=== PATIENT | male | born 1960 | race Caucasian/White ===

== ENCOUNTER 2016-06-18 10:47 | Outpatient (CLI) | payer MEDICARE, OTHER ==
[2016-05-13 21:18] VITALS: BP 142/68
== END 2016-06-18 10:50 ==
LOC: LAB 10:47
PROVIDERS: ATTEND Family Medicine
DX: M13.0 Polyarthritis, unspecified (principal)
CPT/HCPCS: 36415; 85651; 86038; 86431

== ENCOUNTER 2016-10-22 20:52 | Emergency (ER) | payer MEDICARE, OTHER ==
--- NOTE | 2016-10-22 21:47 | Diagnostic Imaging Report ---
KELLI WRIGHT~ [facility] [address] [facility].[address] [address] ~ ~ ~ ~ Report Submission Date: Oct 22, 2016 9:31:38 PM CDT Patient ~ Study Name: JESSY HERNANDEZ ~ Date: Oct 22, 2016 9:16:25 PM CDT ~ Modality Type: CR Gender: M ~ Description: ABDOMEN : 60 ~ Institution: [facility] Physician: KELLI WRIGHT ~ ~ ~ ~ Abdomen AP view. History: Abdominal pain. Findings: The bowel gas pattern is normal. No evidence of obstruction. Mild amount of retained stool is present. No radiopaque calculus identified. There is surgical changes in the lower lumbar spine present. Impression: 1. Normal bowel gas pattern without evidence of obstruction. ~ Electronically signed on Oct 22, 2016 9:31:38 PM CDT by: Carl URBINA
[2016-10-22] MEDS: KETOROLAC TROMETHAMINE 30 MG/1ML VIAL IVP ONE (22:00)
[2016-10-22 22:01] LABS: BASOPHILS % 0.8 (0.0-1.5); EOSINOPHILS % 4.9 % (0.0-6.8); MEAN CORPUSCULAR HEMOGLOBIN 29.1 pg (28.0-34.0); MEAN CORPUSCULAR VOLUME 88.7 fl (80.0-100.0); MONOCYTES % 7.2 % (0.0-11.0); NEUTROPHILS # 2.5 # k/uL (1.4-7.7)
[2016-10-22 22:16] LABS: eGFR (African) > 60; eGFR (Non-African) > 60
[2016-10-22] MEDS: 0.9 % SODIUM CHLORIDE 500 ML IV ONE (22:21)
[2016-10-22] MEDS: HYDROmorphone HCL/PF 1 MG/ML DISP.SYRIN IVP ONE (23:21)
--- NOTE | 2016-10-23 00:28 | ED Physician Documentation ---
General Adult - HISTORIAN Historian: patient - HPI Stated Complaint: abd pain Chief Complaint: General Adult Onset: hours Timing: still present Severity: moderate Further Comments: yes (Pt is a 56 yo male with pain in his abdomen. Pt has hx chronic back pain, for which he is rx'd morphine. Pt had back surgery, he says , with numerous complications because his ureter was cut and his bowel was cut during the back surgery procedure. This resulted in a number of follow up surgeries to repair bowel and ureter. Pt has pain in the umbilical area, where he has post surgical scars. Last bowel surgery took place more than 5 yrs ago. Pt reports normal bms and no n/v.) - ROS CONST: no problems EYES/ENT: none CVS/RESP: none GI/: abdominal pain MS/SKIN/LYMPH: none - PAST HX Past History: other (GERD, chronic back pain) Surgeries/Procedures: other (ortho surgery, back surgery, multiple abdominal bowel surgeries, ureter repair s/p back surgery.) Allergies/Adverse Reactions: Allergies Allergy/AdvReac Type Severity Reaction Status Date / Time codeine AdvReac Unknown Nausea/Vomi Verified 05/13/16 20:11 ting Home Medications: Ambulatory Orders Medication Instructions Recorded Morphine Sulfate [Morphine Sulfate 30 mg PRN PRN 05/31/14 ER] Lactulose [Lactulose] 15 ml PO BID 05/13/16 Linaclotide [Linzess] 145 mcg PO DAILY 05/13/16 Tamsulosin HCl [Tamsulosin HCl] 0.4 mg PO DAILY 05/13/16 Potassium Citrate/Citric Acid 1,080 mg PO D 10/22/16 [Cytra-K Crystals Packet] - SOCIAL HX Smoking History: non-smoker - FAMILY HX Family History: No - VITAL SIGNS Vital Signs: Vital Signs Temp Pulse Resp BP Pulse Ox 97.9 F 74 16 117/74 97 10/22/16 20:52 10/22/16 20:52 10/22/16 20:52 10/22/16 20:52 10/22/16 20:52 - REVIEWED ASSESSMENTS Nursing Assessment Reviewed: Yes Vitals Reviewed: Yes Progress - Progress Progress: KUB: Normal bowel gas pattern without evidence of obstruction. NS 500 cc IVF Toradol 30 mg IV no change Dilaudid 1 mg IV some improvement in pain. ED Results Lab/Radiology - Lab Results Lab Results: Lab Results 10/22/16 21:56 WBC 5.40 K/ul K/ul (4.00-12.00) RBC 3.96 M/ul M/ul (3.90-5.20) Hgb 11.5 g/dL L g/dL (12.0-18.0) Hct 35.1 % L % (37.0-53.0) MCV 88.7 fl fl (80.0-100.0) MCH 29.1 pg pg (28.0-34.0) MCHC 32.8 g/dL g/dL (30.0-36.0) RDW 12.5 % % (11.3-14.3) Plt Count 215 K/mm3 K/mm3 (130-400) Neut % (Auto) 46.1 % % (39.0-79.0) Lymph % (Auto) 39.3 % % (16.0-50.0) Sharp % (Auto) 7.2 % % (0.0-11.0) Eos % (Auto) 4.9 % % (0.0-6.8) Baso % (Auto) 0.8 (0.0-1.5) Neut # 2.5 # k/uL # k/uL (1.4-7.7) Lymph # 2.1 # k/uL # k/uL (0.6-4.0) Sharp # 0.4 # k/uL # k/uL (0.0-0.9) Eos # 0.3 # k/uL # k/uL (0.0-0.6) Baso # 0.0 # k/uL # k/uL (0.0-0.5) Reactive Lymphs % 1.7 % % (0.0-5.0) Reactive Lymphs # 0.1 # k/uL # k/uL (0.0-0.8) - Orders Orders: ED Orders Category Date Time Status Place IV Lock 1T Care 10/22/16 21:05 Active KUB [ABDOMEN 1 VIEW] [RAD] Stat Exams 10/22/16 Completed AMYLASE Routine Lab 10/22/16 21:56 Received CBC/PLATELET/DIFF Routine Lab 10/22/16 21:56 Completed CMP Routine Lab 10/22/16 21:56 Received 0.9 % Sodium Chloride [Normal Saline] 500 ml Med 10/22/16 21:05 Discontinued IV NOW Ketorolac Tromethamine [Toradol] Med 10/22/16 21:32 Discontinued 30 mg IVP NOW ONE General Adult Physical Exam - PHYSICAL EXAM GENERAL APPEARANCE: mild distress EENT: pharynx normal NECK: normal inspection, supple RESPIRATORY: no resp distress, chest non-tender, breath sounds normal CVS: reg rate & rhythm, heart sounds normal ABDOMEN: soft, no organomegaly, normal bowel sounds, other (pain appears superficial, as in the abd muscles near the umbilicus.) BACK: normal inspection, no CVA tenderness SKIN: warm/dry, normal color EXTREMITIES: non-tender, normal range of motion, no evidence of injury NEURO: oriented X3, motor nml, sensation nml Discharge Clincal Impression: abd pain, ? abd wall, muscular Referrals: Primary Doctor,No [Primary Care Provider] - Home Medications: Ambulatory Orders Morphine Sulfate [Morphine Sulfate ER] 30 mg PRN PRN 05/31/14 Lactulose [Lactulose] 15 ml PO BID 05/13/16 Linaclotide [Linzess] 145 mcg PO DAILY 05/13/16 Tamsulosin HCl [Tamsulosin HCl] 0.4 mg PO DAILY 05/13/16 Potassium Citrate/Citric Acid [Cytra-K Crystals Packet] 1,080 mg PO D 10/22/16 Condition: Stable Disposition: 01 HOME, SELF-CARE Decision to Admit: NO Decision Time: 00:24
[2016-10-23 00:40] VITALS: BP 109/57
[2016-10-23 06:22] LABS: APPEARANCE,URINE CLOUDY (CLEAR); COLOR,URINE YELLOW (YELLOW); OCCULT BLOOD,URINE TRACE-INTACT (NEGATIVE); UROBILINOGEN URINE 0.2 Eu (0.2-1.0)
== END 2016-10-23 00:15 | disposition home or self-care (01) ==
LOC: ED 20:52
DX: R10.9 Unspecified abdominal pain (principal)
CPT/HCPCS: 74000; 80053; 81002; 82150; 85025; J1170; J1885; J7060; 96361; 96374; 99283; S1016

== ENCOUNTER 2016-11-05 10:41 | Outpatient (CLI) | payer MEDICARE, OTHER ==
--- NOTE | 2016-11-08 14:42 | CONSULTATION REPORT ---
REFERRING PHYSICIAN: Dr. Darnell Reveles CONSULTING PHYSICIAN: Quinton Cotter MD Dear Dr. Reveles: HISTORY OF PRESENT ILLNESS: Thank you for your consultation request regarding Jacob Sue. Jacob Sue is a 56-year-old white male who has a rich musculoskeletal history including cervical spine fusion with hardware, left elbow surgery, ankle surgery, numerous lumbar spine surgeries, [address] Lamas, and 1 in [place] , which is complicated apparently by a severed ureter requiring repair. He continues to have chronic issues with what appears to be bowel obstruction. He was seen by Dr. Pompa at the [facility] and is to undergo revision of his bowel surgery. However, he comes to see me as about 6 months ago, he developed a gradual onset of pain in his hands and feet. 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 There is numbness and tingling in the first 3 digits bilaterally. He also has pain and stiffness in his elbows, shoulders, groin, and the knees are spared. His ankles are tender and the bottom of his feet hurt. He has had no other associated symptoms such as rashes or nodules. PAST MEDICAL HISTORY: As above, as well as chronic headaches and gastric reflux disease. PRESENT MEDICATIONS: 1. Morphine 30 mg p.r.n. 2. Lactulose. 3. Linzess. 4. Tamsulosin. ALLERGIES: He reports an allergy to codeine. SOCIAL HISTORY: Nonsmoker and nondrinker. He is . FAMILY HISTORY: His sister has rheumatoid arthritis. REVIEW OF SYSTEMS: Positive for weakness, mainly in the hands, some loss of hearing, constipation, nocturia, muscle spasms, and hair loss. Review of systems is negative for change in his weight, any red painful eyes, dry eyes or dry mouth, and difficulty swallowing. He has had no chest pain, shortness of breath, cough or wheezing. No nausea. No vomiting. No diarrhea. No dark stools or bloody stools. No skin rashes, hives, photosensitivity, color changes of the hands or feet in the cold, and no swollen or tender lymph nodes. PHYSICAL EXAMINATION: Vital Signs: Height: 5 feet 10 inches. Weight: 169. BP: 150/97, T: 96.9, R: 20, heart rate: 97. HEENT: External ears and nose are unremarkable. SKIN AND NAILS: No lesions. LUNGS: Clear bilaterally with no crackles, wheezing, or rubs. HEART: Regular rhythm. ABDOMEN: Benign. VASCULAR EXAM: No edema or cyanosis. JOINTS: Changes of OA at the DIPs and PIPs but tenderness at MCPs #2 and #3 bilaterally, as well as the right elbow. He has a flexion deformity of the left elbow with a surgical scar. Shoulders with no effusions, good range of motion. Hips and knees are unremarkable. Ankles are tender. LABORATORY STUDIES: He had some labs done on June 18 and rheumatoid factor and SHABBIR screen were negative. IMPRESSION: 1. Polyarthritis. We will evaluate the patient for an inflammatory arthropathy. 2. Chronic neck and back pain noted. PLAN: 1. We will repeat his labs today including AVISE testing. 2. We will also obtain x-rays of his hands and feet looking for clues. 3. I am going to see him back in 4 weeks. cc: Dr. Darnell URBINA
== END 2016-11-05 13:50 ==
LOC: RHEU 10:41
PROVIDERS: ATTEND Internal Medicine
DX: M13.0 Polyarthritis, unspecified (principal)
CPT/HCPCS: 36415; G0463

== ENCOUNTER 2016-11-29 15:57 | Outpatient (CLI) | payer MEDICARE, OTHER ==
--- NOTE | 2016-11-29 17:59 | Diagnostic Imaging Report ---
[facility] [address] [facility].[address] [address] Report Submission Date: Nov 29, 2016 4:52:34 PM CDT Patient Study Name: JESSY HERNANDEZ Date: Nov 29, 2016 4:12:45 PM CDT Modality Type: CR Gender: M Description: LOWER EXTREMITY : 60 Institution: [facility] Physician: MARY BENTLEY - JUAN Examination: Plain film foot History: Foot discomfort Findings: 3 views of both the right and left foot demonstrates mild osteopenia. Early articular degenerative changes. No fracture or dislocation. No soft tissue swelling. No joint effusion. Calcaneal spurs. Impression: Degenerative changes and calcaneal spurs. No fracture. Electronically signed on Nov 29, 2016 4:52:34 PM CDT by: Alexys URBINA
--- NOTE | 2016-11-29 18:01 | Diagnostic Imaging Report ---
[facility] [address] [facility].[address] [address] Report Submission Date: Nov 29, 2016 5:31:58 PM CDT Patient Study Name: JESSY HERNANDEZ Date: Nov 29, 2016 4:05:37 PM CDT Modality Type: CR Gender: M Description: UPPER EXTREMITY : 60 Institution: [facility] Physician: MARY BENTLEY - JUAN Bilateral l hands 3 views History: Pain Findings: Early osteoarthritis is noted in multiple bilateral interphalangeal joints, right 2nd and 3rd metacarpophalangeal joints and left 2nd metacarpophalangeal joint. There is no evidence of fracture, dislocation, erosion, or soft tissue calcification. 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 Electronically signed on Nov 29, 2016 5:31:58 PM CDT by: Deven URBINA
== END 2016-11-29 16:00 ==
LOC: RAD 15:57
PROVIDERS: ATTEND Internal Medicine
DX: M13.0 Polyarthritis, unspecified (principal); G56.03 Carpal tunnel syndrome, bilateral upper limbs

== ENCOUNTER 2017-01-07 12:39 | Outpatient (CLI) | payer MEDICARE, OTHER ==
--- NOTE | 2017-01-07 18:48 | OP Clinic Progress Note ---
REASON FOR VISIT: Jacob Sue returns for follow up of idiopathic polyarthritis. He is still having significant pain in his hands, wrists, elbows, and his feet. 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 He is to undergo chemotherapy under the guidance of Dr. Nichole. Otherwise, medications and history are unchanged from my original note. REVIEW OF SYSTEMS: Review of systems is as above. No fevers or chills. PHYSICAL EXAMINATION: General: He looks well. JOINTS: Joints are tender at the MCPs and PIPs but no overt synovitis. Wrists have good range of motion. Elbows are tender. DIAGNOSTIC STUDIES: I personally reviewed the x-rays of his hands, wrists, and feet. No significant osteopenia. No marginal erosions were appreciated. No significant soft tissue swelling. He does have some MCP joint space narrowing of #2 and #3 with bony sclerosis. He has got some distal osteophytes. Looking at the wrists, no definitive erosions. He has got minimal radial carpal disease. Avise testing was negative for rheumatoid factors, CCP, and vimentin antibodies. SHABBIR, low-positive, 1:80. Extractable nuclear antigens were negative. IMPRESSION: At this time, this looks like osteoarthritis rather aggressive and inflammatory. PLAN: I explained to the patient, we may need to look again in the future and a typical presentation of rheumatoid arthritis does remain possible. In the meantime, he is to complete his treatment for his neuroendocrine tumor of the jejunum. We will add no medications. I gave him a copy of his lab tests and x-rays. Thank you very much. cc: Dr. Darnell URBINA
== END 2017-01-07 12:45 ==
LOC: RHEU 12:39
PROVIDERS: ATTEND Internal Medicine
DX: M15.9 Polyosteoarthritis, unspecified (principal)
CPT/HCPCS: 99213; G0463

== ENCOUNTER 2017-04-24 19:37 | Emergency (ER) | payer MEDICARE, OTHER ==
--- NOTE | 2017-04-24 20:03 | ED Physician Documentation ---
Chest Pain - HISTORIAN Historian: patient - HPI Chief Complaint: Chest Pain Additional Information: onset 3 d ago lt ant low thoracic sharp chest pain reproduced w/ pressure but w/ exertion he has severe crushing sub sternal cp which rad to jaw and lt arm and to back-some assoc sob Timing: gradual onset, still present, worse Duration: constant, waxing, waning Last known Well Date: 04/22/17 (this is guess from pt ) Last Known Well Time: 08:12 Last known Well Code/Unknown Code: Unknown Context: activity Severity: moderate Quality: pressure, tightness, burning, dull, sharp, stabbing. denies: indigestion Chest Pain Radiation: arms, back Chest Pain Signs/Symptoms: dyspnea. denies: nausea, vomiting, diaphoresis Worsened By: exertion Relieved By: rest - ROS CONST: no problems. denies: recent illness, fever, recent injury MS/LYMPH: none GI/: none SKIN/ENDO: none NEURO/PSYCH: none - PAST HX VT risk factors: other (carcinoid small intestine ch back pain bph abd adhesions low k mg gerd) Surgeries/Procedures: other (several back hip ankle) Allergies/Adverse Reactions: Allergies Allergy/AdvReac Type Severity Reaction Status Date / Time codeine AdvReac Unknown Nausea/Vomi Verified 05/13/16 20:11 ting Home Medications: Ambulatory Orders Medication Instructions Recorded Morphine Sulfate [Morphine Sulfate 30 mg PRN PRN 05/31/14 ER] Lactulose [Lactulose] 15 ml PO BID 05/13/16 Linaclotide [Linzess] 145 mcg PO DAILY 05/13/16 Tamsulosin HCl [Tamsulosin HCl] 0.4 mg PO DAILY 05/13/16 Potassium Citrate/Citric Acid 1,080 mg PO D 10/22/16 [Cytra-K Crystals Packet] - SOCIAL HX Smoking History: non-smoker Alcohol Use: none Drug Use: none - FAMILY HX Family HX: other (i-c-[id number]-heavy cigarette smoker) - VITAL SIGNS Vital Signs: Vital Signs Temp Pulse Resp BP Pulse Ox 109/57 10/23/16 00:35 - REVIEWED ASSESSMENTS Nursing Assessment Reviewed: Yes Vitals Reviewed: Yes ED Results Lab/Radiology - Orders Orders: ED Orders Category Date Time Status Continuous EKG monitoring Q30M Care 04/24/17 19:57 Active Continuous Pulse Oximetry Q30M Care 04/24/17 19:[address] IV Lock 1T Care 04/24/17 19:57 Active CHEST 1 VIEW [RAD] Stat Exams 04/24/17 19:57 Ordered CBC/PLATELET/DIFF Routine Lab 04/24/17 19:57 Ordered CMP Routine Lab 04/24/17 19:57 Ordered TROPONIN I (cTnI) Stat Lab 04/24/17 19:57 Ordered Aspirin Med 04/24/17 19:56 Discontinued 324 mg PO NOW ONE Nitroglycerin [Nitroquick] Med 04/24/17 19:56 Ordered 0.4 mg SL Q5M PRN Oxygen Daily Oxygen 04/24/17 20:00 Ordered EKG WITH COMPARISON Stat Ther 04/24/17 19:57 Ordered Chest Pain Physical Exam - EXAM General Appearance: moderate distress EENT: eye inspection normal Neck: nml inspection, no carotid bruit Respiratory: no resp. distress. No: chest non-tender (lt ant low thoracic sig tenderness w/pressure-but this different than above) CVS: reg. rate & rhythm, no murmur Abdomen: soft, non-tender Skin: warm/dry, normal color. No: cyanosis, diaphoresis, jaundice, mottled Extremities: non-tender, normal range of motion Neuro: oriented X3, motor nml, sensation nml, mood/affect nml Discharge Clincal Impression: exertional angina dt anemia, anemia asssoc w/carcinoid Referrals: Darnell Reveles MD [Primary Care Provider] - 2 Days Comments: muset see oncologists soon-send copies lab w/pt/ Condition: Fair Disposition: 01 HOME, SELF-CARE Decision to Admit: NO Decision Time: 23:13
[2017-04-24] MEDS ORDERED: NITROGLYCERIN 0.4 MG TAB.SUBL SL ONE (20:05)
[2017-04-24 20:06] LABS: BASOPHILS % 0.6 (0.0-1.5); EOSINOPHILS % 2.5 % (0.0-6.8); MEAN CORPUSCULAR HEMOGLOBIN 20.4 pg (28.0-34.0); MONOCYTES % 5.4 % (0.0-11.0); NEUTROPHILS # 4.5 # k/uL (1.4-7.7)
[2017-04-24] MEDS: NITROGLYCERIN 0.4 MG TAB.SUBL SL PRN (20:10)
[2017-04-24] MEDS: ASPIRIN 81 MG CHEW TAB PO ONE (20:10)
[2017-04-24 20:20] LABS: eGFR (African) > 60; eGFR (Non-African) > 60
[2017-04-24] MEDS: 0.9 % SODIUM CHLORIDE 1,000 ML IV SCH (22:46)
[2017-04-24] MEDS: ONDANSETRON HCL/PF 4 MG/ 2ML VIAL IVP ONE (23:11)
[2017-04-24 23:29] VITALS: BP 122/68
[2017-04-25 06:07] LABS: APPEARANCE,URINE CLOUDY (CLEAR); COLOR,URINE YELLOW (YELLOW); OCCULT BLOOD,URINE NEGATIVE (NEGATIVE); PH URINE 5.5 (5.0 - 8.0); UROBILINOGEN URINE 0.2 Eu (0.2-1.0)
--- NOTE | 2017-04-25 06:29 | Diagnostic Imaging Report ---
SAMIR MIKE [facility] [address] [facility].[address] 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 Lung sanz without focal infiltrate. No blunting of the costophrenic margins. Mild elevation of the right hemidiaphragm. Osseous structures are appropriate for age. Impression: No acute pulmonary process. Electronically signed on Apr 24, 2017 8:22:01 PM SEAL DELIVERY VEHICLE OFFICER by: Alexys URBINA
== END 2017-04-24 23:22 | disposition home or self-care (01) ==
LOC: ED 19:37
DX: I20.8 Other forms of angina pectoris (principal); D64.89 Other specified anemias
CPT/HCPCS: 71010; 80053; 81002; 84484; 85025; 96360; 99283; J7030; S1016

== ENCOUNTER 2018-04-12 20:04 | Emergency (ER) | payer MEDICARE, OTHER ==
--- NOTE | 2018-04-12 20:33 | ED Physician Documentation ---
Lower Extremity Problem - HISTORIAN Historian: patient - HPI Stated Complaint: L ankle pain Chief Complaint: Lower Extremity Problem Additional Information: Patient presents to ED with a 2 day history of left ankle pain extending into left lateral foot. He denies any injury, however, does say he may have stepped off of his tractor the wrong way a couple of days ago. He admits to previous surgery to the ankle. Location of Injury: L ankle Onset: days ago (2) Timing: still present, worse Duration: constant Recent Injury: No Where: home Severity: moderate Quality: pain, swelling, tenderness. denies: numbness, tingling Exacerbated By: walking Relieved By: nothing Associated Symptoms: denies: chest pain, shortness of breath Further Comments: no - ROS CONST: no problems MS/SKIN/LYMPH: none GI/: none EYES/ENT: none NERUO/PSYCH: denies: headache - PAST HX Past History: none PE Risk Factors: none Allergies/Adverse Reactions: Allergies Allergy/AdvReac Type Severity Reaction Status Date / Time codeine AdvReac Unknown Nausea/Vomi Verified 04/12/18 20:25 ting povidone-iodine AdvReac Nausea/Vomi Verified 04/12/18 20:25 [From Betadine] ting soap [From Betadine] AdvReac Nausea/Vomi Verified 04/12/18 20:25 ting Home Medications: Ambulatory Orders Medication Instructions Recorded Morphine Sulfate [Morphine Sulfate 30 mg PRN PRN 05/31/14 ER] Lactulose 15 ml PO BID 05/13/16 Linaclotide [Linzess] 145 mcg PO DAILY 05/13/16 Tamsulosin HCl 0.4 mg PO DAILY 05/13/16 Potassium Citrate/Citric Acid 1,080 mg PO D 10/22/16 [Cytra-K Crystals Packet] - SOCIAL HX Smoking History: non-smoker Alcohol Use: none Drug Use: none - FAMILY HX Family History: none - VITAL SIGNS Vital Signs: Vital Signs Temp Pulse Resp BP Pulse Ox 82 15 146/90 98 04/12/18 20:10 04/12/18 20:10 04/12/18 20:10 04/12/18 20:10 - REVIEWED ASSESSMENTS Nursing Assessment Reviewed: Yes Vitals Reviewed: Yes ED Results Lab/Radiology - Radiology Radiology Impressions: Left ankle and left foot xray - no fractures or dislocations - Orders Orders: ED Orders Category Date Time Status ANKLE 3 VIEWS OR MORE [RAD] Stat Exams 04/12/18 Ordered FOOT 3 VIEWS OR MORE [RAD] Stat Exams 04/12/18 Ordered Lower Extremity Problem - EXAM General Appearance: no distress Ankle: left: no evidence of injury, soft tissue tenderness, swelling Foot: left foot: normal inspection, soft tissue tenderness Neuro/Tendon: normal sensation, normal motor functions, normal tendon functions EENT: eye inspection normal RESPIRATORY: no resp distress, breath sounds normal CVS: reg rate & rhythm, heart sounds normal JOINT: nml ROM VASCULAR: no vascular compromise, pulses full/equal NEURO/PSYCH: oriented X3 SKIN: warm/dry, normal color BACK: normal inspection Discharge Clincal Impression: Left ankle strain Qualifiers: Encounter type: initial encounter Qualified Code(s): S96.912A - Strain of unspecified muscle and tendon at ankle and foot level, left foot, initial encounter Referrals: Darnell Reveles MD [Primary Care Provider] - 2 Days Additional Instructions: 1. ICE to affected area as needed 2. Take home pain medication as previously prescribed. 3. Follow up with PCP within 1 week. Comments: 1. ICE to affected area as needed 2. Take home pain medication as previously prescribed. 3. Follow up with PCP within 1 week. Condition: Stable Disposition: 01 HOME, SELF-CARE Decision to Admit: NO Date of Decison to Admit: 04/12/18 Decision Time: 20:55
[2018-04-12 20:57] VITALS: BP 146/90
--- NOTE | 2018-04-13 05:03 | Diagnostic Imaging Report ---
FRANCIA ORDOÑEZ [facility] [address] [facility] [address] [place] [address]. 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 History: PAIN TO TOP OF LEFT FOOT AND LATERAL ANKLE (Hx) / ITS.REASON pain Findings: There is no evidence of acute fracture or dislocation. The metatarsals and phalanges are intact. The tibiotalar alignment is maintained add the bones of the hindfoot are normal. Impression: No acute osseous abnormality. Electronically signed on Apr 12, 2018 9:05:07 PM ACCOUNT INFORMATION CLERK by: Matthew URBINA
--- NOTE | 2018-04-13 05:04 | Diagnostic Imaging Report ---
FRANCIA ORDOÑEZ [facility] [address] [facility] [address] 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 The lateral malleolus is unremarkable. The talar dome and ankle mortise are normal. There is dorsal calcaneal spurring. Impression: Tiny sliver-like ossific density projecting adjacent to the medial malleolus, age indeterminate but possibly a small bony avulsion. No additional osseous abnormality. Electronically signed on Apr 12, 2018 9:05:40 PM SUPER[employer] by: Kavitha URBINA
== END 2018-04-12 20:57 | disposition home or self-care (01) ==
LOC: ED 20:04
DX: S96.912A Strain of unspecified muscle and tendon at ankle and foot level, left foot, initial encounter (principal); X58.XXXA Exposure to other specified factors, initial encounter
CPT/HCPCS: 73610; 73630; 99283

== ENCOUNTER 2018-10-01 15:46 | Emergency (ER) | payer MEDICARE, OTHER ==
[2018-10-01 16:00] VITALS: BP 111/81
--- NOTE | 2018-10-01 16:04 | ED Physician Documentation ---
Fall - HISTORIAN Historian: patient - HPI Stated Complaint: fall with rib pain Chief Complaint: Fall Additional Information: Patient is a 58-year-old male that presents to the ER ambulatory with c/o right sided rib pain s/p fall. He stated that he fell approx. 5 days ago and hit the bucket of a truck to the right ribs. He denies any shortness of breath or chest pain. Denies fever, chills, or productive cough. Onset: days ago (5 days ago) Where: home Context: tripped, fell from standing r: mild Associated Symptoms:: no loss of consciousness Location of Pain/Injury: chest (right lateral ribs) Injury to Right Extremity: none Injury to Left Extremity: none - ROS CONST: no problems NEURO: denies: anxiety, depression MS/SKIN/LYMPH: denies: back pain EYES/ENT: none CVS/RESP: none GI/: denies: nausea, vomiting - PAST HX Past History: other (Colon cancer) Immunizations: UTD Allergies/Adverse Reactions: Allergies Allergy/AdvReac Type Severity Reaction Status Date / Time codeine AdvReac Unknown Nausea/Vomi Verified 10/01/18 15:59 ting povidone-iodine AdvReac Nausea/Vomi Verified 10/01/18 15:59 [From Betadine] ting soap [From Betadine] AdvReac Nausea/Vomi Verified 10/01/18 15:59 ting Home Medications: Ambulatory Orders Medication Instructions Recorded Morphine Sulfate [Morphine Sulfate 30 mg PRN PRN 05/31/14 ER] Lactulose 15 ml PO BID 05/13/16 Linaclotide [Linzess] 145 mcg PO DAILY 05/13/16 Tamsulosin HCl 0.4 mg PO DAILY 05/13/16 Potassium Citrate/Citric Acid 1,080 mg PO D 10/22/16 [Cytra-K Crystals Packet] - SOCIAL HX Smoking History: non-smoker Alcohol Use: none Drug Use: none - FAMILY HX Family History: none - VITAL SIGNS Vital Signs: Vital Signs Temp Pulse Resp BP Pulse Ox 97.8 F 87 19 111/81 99 10/01/18 15:55 10/01/18 15:55 10/01/18 15:55 10/01/18 15:55 10/01/18 15:55 - REVIEWED ASSESSMENTS Nursing Assessment Reviewed: Yes Vitals Reviewed: Yes ED Results Lab/Radiology - Radiology Radiology Impressions: PA chest and right ribs History: Right lower rib pain after fall Findings: A nondisplaced right lateral 9th rib fracture is observed. The lungs are clear. There is no hemothorax or pneumothorax. Cervical fusion hardware is present. Electronically signed on October 01, 2018 4:45:36 PM CDT by: Deven Villalba - Orders Orders: ED Orders Category Date Time Status RIBS UNILATERAL W/ PA CHEST [RAD] Stat Exams 10/01/18 Ordered Fall Physical Exam - Physical Exam General Appearance: alert, mild distress Head: non-tender Neck: non-tender Eye: JOSIAS, lids & conjunct. nml, ecchymosis (to right lower eye (old injury-per pt)) ENT: airway nml Resp/CVS: breath sounds nml, heart sounds nml, rib tenderness Abdomen: soft, normal bowel sounds Neuro: oriented x3, CN's nml as tested, sensation nml, motor nml, mood/affect nml, machine feeder floorperson nml, machine feeder floorperson symmetrical Skin: color nml, warm, dry Back: normal inspection Extremities: nml ROM Joint: nml ROM, Nml gait/weight bearing - [place] Coma Score Eyes Open: Spontaneous Speech: Oriented Motor: Obeys Commands Discharge Clincal Impression: Closed rib fracture Referrals: Darnell Reveles MD [Primary Care Provider] - 2 Days Additional Instructions: Alternate Tylenol and Ibuprofen as needed for pain Splint the ribs with a pillow when coughing Follow up with PCP next week as needed Condition: Good Disposition: 01 HOME, SELF-CARE Decision to Admit: NO Decision Time: 17:00
--- NOTE | 2018-10-01 16:47 | Diagnostic Imaging Report ---
JAISON VALDEZ ED [facility] [address] [facility].[address] [id number] Report Submission Date: October 01, 2018 4:45:36 PM CDT Patient Study Name: JESSY HERNANDEZ Date: October 01, 2018 4:02:20 PM CDT Modality Type: DX Gender: M Description: RIBS UNILATERAL W/ PA CHEST : 60 Institution: [facility] Physician: JAISON VALDEZ ED PA chest and right ribs History: Right lower rib pain after fall Findings: A nondisplaced right lateral 9th rib fracture is observed. The lungs are clear. There is no hemothorax or pneumothorax. Cervical fusion hardware is present. Electronically signed on October 01, 2018 4:45:36 PM CDT by: Deven URBINA
== END 2018-10-01 16:55 | disposition home or self-care (01) ==
LOC: ED 15:46
DX: S22.31XA Fracture of one rib, right side, initial encounter for closed fracture (principal); W01.198A Fall on same level from slipping, tripping and stumbling with subsequent striking against other object, initial encounter; Y93.9 Activity, unspecified; Y92.008 Other place in unspecified non-institutional (private) residence as the place of occurrence of the external cause
CPT/HCPCS: 71101; 99282; 99283

== ENCOUNTER 2019-01-15 18:43 | Emergency (ER) | payer MEDICARE, OTHER ==
--- NOTE | 2019-01-15 19:40 | ED Physician Documentation ---
Fall - HISTORIAN Historian: patient - HPI Chief Complaint: Fall Onset: just prior to arrival Where: home Context: slipped Associated Symptoms:: no loss of consciousness Location of Pain/Injury: other (right lateral back - rib area) Injury to Right Extremity: none Injury to Left Extremity: none Further Comments: yes (58 year old male patient presents with complaint of right rib pain after slipping and falling in his garage this morning. [place] a "crack".) - ROS CONST: no problems NEURO: denies: dizziness, anxiety, depression, other MS/SKIN/LYMPH: denies: weakness, numbness, neck pain, back pain, ankle swelling, leg swelling, rash, other EYES/ENT: none CVS/RESP: none GI/: denies: nausea, vomiting - PAST HX Past History: other (constipation, many abdominal surgeries d/t stomach CA, right tib fracute; ) Allergies/Adverse Reactions: Allergies Allergy/AdvReac Type Severity Reaction Status Date / Time codeine AdvReac Unknown Nausea/Vomi Verified 01/15/19 19:06 ting povidone-iodine AdvReac Nausea/Vomi Verified 01/15/19 19:06 [From Betadine] ting soap [From Betadine] AdvReac Nausea/Vomi Verified 01/15/19 19:06 ting Home Medications: Ambulatory Orders Medication Instructions Recorded Morphine Sulfate [Morphine Sulfate 30 mg PRN PRN 05/31/14 ER] Lactulose 15 ml PO BID 05/13/16 Linaclotide [Linzess] 145 mcg PO DAILY 05/13/16 Tamsulosin HCl 0.4 mg PO DAILY 05/13/16 Potassium Citrate/Citric Acid 1,080 mg PO D 10/22/16 [Cytra-K Crystals Packet] - SOCIAL HX Smoking History: cigarettes - FAMILY HX Family History: denies: none - VITAL SIGNS Vital Signs: Vital Signs Temp Pulse Resp BP Pulse Ox 111/81 10/01/18 15:55 - REVIEWED ASSESSMENTS Nursing Assessment Reviewed: Yes Vitals Reviewed: Yes ED Results Lab/Radiology - Radiology Radiology Impressions: HISTORY: 58-year-old male with right chest wall pain after fall. COMPARISON: None available. TECHNIQUE: Frontal view of the chest and 3 views of the right ribs were performed. FINDINGS: No pneumothorax, pulmonary edema, or consolidative infiltrates. The heart is not enlarged. There are mildly displaced fractures of the right eighth through tenth ribs. The eleventh and twelfth ribs are not well visualized. There are postoperative changes of the lower cervical spine. IMPRESSION: 1. Study positive for mildly displaced fractures of the right eighth through tenth ribs. 2. No pneumothorax or consolidative infiltrates. Electronically signed on Jan 15, 2019 7:36:49 PM CDT by: David Hernandez - Orders Orders: ED Orders Category Date Time Status RIBS UNILATERAL W/ PA CHEST [RAD] Stat Exams 01/15/19 Taken Fall Physical Exam - Physical Exam General Appearance: mild distress Neck: non-tender, painless ROM, trachea midline Eye: JOSIAS Resp/CVS: no ecchymosis, breath sounds nml, no resp. distress, heart sounds nml, other (5 cm area of ecchymosis on right posterior ribs - #8-10 area.) Abdomen: soft, no organomegaly, normal bowel sounds, no abdominal bruit, no distension Neuro: oriented x3, CN's nml as tested, sensation nml, motor nml, mood/affect nml, website/blog editor nml, reflexes nml, website/blog editor symmetrical Discharge Clincal Impression: Multiple rib fractures Qualifiers: Encounter type: initial encounter Fracture type: closed Laterality: right Qualified Code(s): S22.41XA - Multiple fractures of ribs, right side, initial encounter for closed fracture Fall at home Qualifiers: Encounter type: initial encounter Qualified Code(s): W19.XXXA - Unspecified fall, initial encounter; Y92.009 - Unspecified place in unspecified non- institutional (private) residence as the place of occurrence of the external c ause Referrals: Darnell Reveles MD [Primary Care Provider] - 2 Days Additional Instructions: Ribs fractures take 4-6 weeks to heal. You are at risk to develop pneumonia. Do the IS exercises 5 times a day, 10 deep breaths to prevent pneumonia. You may use Tylenol every 4hour as needed for pain. Limit your dose to less than 4 G per day. Alternate with Ibuprofen 600-800mg three times a day with food as needed. Do not take for more than 5 days in a row. If you develop fever and a productive cough, you will need to be seen by your primary care doctor. Condition: Stable Disposition: 01 HOME, SELF-CARE Decision to Admit: NO Decision Time: 19:40
[2019-01-15] MEDS ORDERED: KETOROLAC TROMETHAMINE 60 MG/2 ML VIAL IM ONE (19:52)
[2019-01-15 20:37] VITALS: BP 132/78
--- NOTE | 2019-01-17 12:35 | Diagnostic Imaging Report ---
YOHAN FRANKS ([employer] SUR[employer]YOR) - ER [facility] [address] [address] Report Submission Date: Jan 15, 2019 7:36:49 PM CDT Patient Study Name: JESSY HERNANDEZ Date: Jan 15, 2019 7:03:21 PM CDT Modality Type: DX Gender: M Description: RIBS UNILATERAL W/ PA CHEST : 60 Institution: [facility] Physician: YOHAN FRANKS ([employer]AND SUR[employer]YOR) - ER HISTORY: 58-year-old male with right chest wall pain after fall. COMPARISON: None available. TECHNIQUE: Frontal view of the chest and 3 views of the right ribs were performed. FINDINGS: No pneumothorax, pulmonary edema, or consolidative infiltrates. The heart is not enlarged. There are mildly displaced fractures of the right eighth through tenth ribs. The eleventh and twelfth ribs are not well visualized. There are postoperative changes of the lower cervical spine. IMPRESSION: 1. Study positive for mildly displaced fractures of the right eighth through tenth ribs. 2. No pneumothorax or consolidative infiltrates. Electronically signed on Jan 15, 2019 7:36:49 PM CDT by: David URBINA
== END 2019-01-15 20:17 | disposition home or self-care (01) ==
LOC: ED 18:43
DX: S22.41XA Multiple fractures of ribs, right side, initial encounter for closed fracture (principal); W19.XXXA Unspecified fall, initial encounter; Y92.009 Unspecified place in unspecified non-institutional (private) residence as the place of occurrence of the external cause; Y99.8 Other external cause status
CPT/HCPCS: 71101; 96372; 99284; J1885